=== PATIENT | male | born 1965 | race Caucasian/White ===

== ENCOUNTER 2019-09-29 18:56 | Emergency (ER) | payer OTHER ==
[2019-09-29 19:11] VITALS: BMI 26.6
[2019-09-29] MEDS ORDERED: ACETAMINOPHEN 325 MG TABLET (FP) PO ONE (19:50)
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
[2019-09-29] MEDS ORDERED: ACETAMINOPHEN 325 MG TABLET (FP) ONE (20:34)
[2019-09-29] MEDS ORDERED: NAPROXEN 500 MG TABLET (FP) PO ONE (23:21)
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
[2019-09-29] MEDS ORDERED: NAPROXEN 500 MG TABLET (FP) ONE (23:28)
[2019-09-30 00:01] VITALS: BP 128/80; PULSE 81; TEMP 98
== END 2019-09-29 23:35 | disposition home or self-care (01) ==
LOC: JER 18:56
DX: M25.512 Pain in left shoulder (principal); V03.90XA Pedestrian on foot injured in collision with car, pick-up truck or van, unspecified whether traffic or nontraffic accident, initial encounter; Y92.414 Local residential or business street as the place of occurrence of the external cause; Y93.89 Activity, other specified; Y99.8 Other external cause status
CPT/HCPCS: 70450-TC; 71045-TC-FY; 72125-TC; 73523-TC-FY; 73552-TC-LT-FY; 73560-TC-LT-FY; 73590-TC-LT-FY; 74176-TC; 99282-25